=== PATIENT | female | born 1990 | race African-American/Black ===

== ENCOUNTER 2018-09-20 10:13 | Emergency (ER) | payer MEDICAID, OTHER ==
[~2018-09-20] VITALS: Ht 160 cm; Wt 56.0 kg
[2018-09-20] MEDS ORDERED: IBUPROFEN 600MG TABLET PO ONE (12:15)
[2018-09-20] MEDS ORDERED: LIDOCAINE 1%/EPI 1:100,000 10 ML VIAL IJ ONE (12:15)
[2018-09-20] MEDS ORDERED: ACETAMINOPHEN 500MG TABLET PO ONE (12:15)
[2018-09-20] MEDS ORDERED: BACITRACIN ZINC OINT UDPKT TOP ONE (12:15)
[2018-09-20] MEDS ORDERED: LIDOCAINE HCL 1% 20ML VIAL (Pyxis) INJ INFIL ONE (12:45)
[2018-09-20 14:21] VITALS: BP 116/69
== END 2018-09-20 14:22 | disposition home or self-care (01) ==
LOC: ER 10:13
DX: L02.412 Cutaneous abscess of left axilla (principal)
CPT/HCPCS: 10060; 81025; 99284; J3490; Z7610

== ENCOUNTER 2019-05-19 09:08 | Emergency (ER) | payer MEDICAID, OTHER ==
[~2019-05-19] VITALS: Ht 162.6 cm; Wt 60.0 kg
[2019-05-19] MEDS ORDERED: LIDOCAINE HCL 1% 20ML VIAL (Pyxis) INJ INFIL ONE (10:00)
[2019-05-19 10:48] VITALS: BP 118/73
== END 2019-05-19 10:50 | disposition home or self-care (01) ==
LOC: ER 10:02
DX: L73.2 Hidradenitis suppurativa (principal); F12.10 Cannabis abuse, uncomplicated; F17.210 Nicotine dependence, cigarettes, uncomplicated
CPT/HCPCS: 10060; 81025; 99283; 99406; J3490; Z7610

== ENCOUNTER 2019-05-24 17:21 | Emergency (ER) | payer MEDICAID ==
[~2019-05-24] VITALS: Ht 167.6 cm; Wt 60.0 kg
[2019-05-24 17:29] VITALS: BP 122/47
[2019-05-24] MEDS ORDERED: TETRACAINE 0.5% OPHTH DROPS 4ML BOTHEYE ONE (18:00)
[2019-05-24] MEDS ORDERED: FLUORESCEIN SODIUM 1MG/STRIP BOTHEYE ONE (18:00)
== END 2019-05-24 19:05 | disposition home or self-care (01) ==
LOC: ER 17:30
DX: S05.92XA Unspecified injury of left eye and orbit, initial encounter (principal); H53.8 Other visual disturbances; F12.10 Cannabis abuse, uncomplicated; X58.XXXA Exposure to other specified factors, initial encounter; Y93.89 Activity, other specified; Y92.89 Other specified places as the place of occurrence of the external cause; Y99.8 Other external cause status
CPT/HCPCS: 99283

== ENCOUNTER 2019-06-24 13:26 | Emergency (ER) | payer MEDICAID ==
[~2019-06-24] VITALS: Ht 160 cm; Wt 59.0 kg
[2019-06-24] MEDS ORDERED: BACITRACIN ZINC OINT UDPKT TOP ONE (16:00)
[2019-06-24] MEDS ORDERED: LIDOCAINE HCL/PF 1% 10 MG/ML 5ML VIAL IJ ONE (16:00)
[2019-06-24] MEDS ORDERED: HYDROCODONE/ACETAMINOPHEN 5/325MG TABLET PO ONE (16:15)
[2019-06-24] MEDS ORDERED: MORPHINE SULFATE 10 MG/ML CPJ IM ONE (17:00)
[2019-06-24] MEDS ORDERED: ONDANSETRON 4MG ODT PO ONE (17:00)
[2019-06-24 17:36] VITALS: BP 116/78
== END 2019-06-24 17:38 | disposition home or self-care (01) ==
LOC: ER 13:26
DX: L02.411 Cutaneous abscess of right axilla (principal); F12.90 Cannabis use, unspecified, uncomplicated
CPT/HCPCS: 10060; 96372; 99284; J2270; Q0162